=== PATIENT | female | born 1965 | race American Indian/Alaskan Native ===

== ENCOUNTER 2017-01-07 18:52 | Emergency (ER) | payer MEDICAID ==
[2017-01-07 19:50] LABS: Basophils % (Auto) 0.4 % (0.0-1.8); Eosinophils % (Auto) 3.6 % (0.0-4.3); Hematocrit 41.4 % (30.3-42.9); Hemoglobin 13.6 gm/dl (10.1-14.3); Mean Corpuscular HGB Conc 33 % (30-34); Mean Corpuscular Hemoglobin 30 pg (28-32); Mean Corpuscular Volume 93 fl (79-97); Red Blood Count 4.46 M/mm3 (3.65-5.03); Red Cell Distribution Width 14.4 % (13.2-15.2); White Blood Count 8.9 K/mm3 (4.5-11.0)
[2017-01-07 20:11] LABS: Amylase 73 units/L (27-131); Anion Gap 18 mmol/L; Blood Urea Nitrogen 12 mg/dL (7-17); Carbon Dioxide 24 mmol/L (22-30); Glucose 140 mg/dL (65-100); Lipase 44 units/L (13-60); Potassium 3.7 mmol/L (3.6-5.0); Sodium 143 mmol/L (137-145)
[2017-01-07 20:30] LABS: Platelet Count 122 K/mm3 (140-440)
[2017-01-07 22:28] VITALS: BP 166/86
--- NOTE | 2017-01-09 00:25 | ED Elopement Review ---
ED Pt Elopement review - Results review Lab results: Laboratory Tests 01/07/17 01/07/17 01/07/17 19:42 19:42 22:07 WBC 8.9 RBC 4.46 Hgb 13.6 Hct 41.4 MCV 93 MCH 30 MCHC 33 RDW 14.4 Plt Count 122 L Lymph % (Auto) 37.5 H [place] % (Auto) 5.7 Eos % (Auto) 3.6 Baso % (Auto) 0.4 Lymph # 3.3 [place] # 0.5 Eos # 0.3 Baso # 0.0 Seg Neutrophils % 52.8 Seg Neutrophils # 4.7 Sodium 143 Potassium 3.7 Chloride 105.0 Carbon Dioxide 24 Anion Gap 18 BUN 12 Creatinine 0.8 Estimated GFR > 60 BUN/Creatinine Ratio 15.00 Glucose 140 H Calcium 9.0 Troponin T < 0.010 < 0.010 Amylase 73 Lipase 44 - Call Back decision Pt Call Back Decision: No action required
== END 2017-01-08 01:57 | disposition left against medical advice (07) ==
LOC: ED 18:52
DX: R07.9 Chest pain, unspecified (principal); R10.11 Right upper quadrant pain; Z53.21 Procedure and treatment not carried out due to patient leaving prior to being seen by health care provider
CPT/HCPCS: 36415; 80048; 82150; 83690; 84484; 85025; 93005; 93010

== ENCOUNTER 2017-04-25 12:28 | Outpatient (CLI) | payer MEDICAID ==
--- NOTE | 2017-04-25 15:30 | XRay Report ---
BILATERAL KNEES, 3 VIEWS History: Bilateral knee pain. Findings: There is normal bone mineralization. Minimal osteoarthritic changes are identified in both knees. There is no evidence for fracture, advanced joint pathology or joint effusion. Impression: Minimal osteoarthritic changes. No acute process.
== END 2017-04-25 12:29 | disposition home or self-care (01) ==
LOC: XRAY 12:28
PROVIDERS: ATTEND Internal Medicine
DX: M17.0 Bilateral primary osteoarthritis of knee (principal); J45.909 Unspecified asthma, uncomplicated; J18.9 Pneumonia, unspecified organism